=== PATIENT | female | born 1955 | race Caucasian/White ===

== ENCOUNTER → 2024-02-24 06:38 | Day surgery (SDC) | payer OTHER, SELFPAY | LOC: GI 06:38 | PROVIDERS: ATTENDING PHYSICIAN Internal Medicine Gastroenterology | DX: K29.70 Gastritis, unspecified, without bleeding (principal); K22.89 Other specified disease of esophagus; K31.89 Other diseases of stomach and duodenum; Q39.9 Congenital malformation of esophagus, unspecified; R13.10 Dysphagia, unspecified | CPT/HCPCS: 43239; 88305; 88342 ==